=== PATIENT | female | born 1940 | race Two or more races ===

== ENCOUNTER 2021-03-24 21:42 | Emergency (ER) | payer OTHER ==
[~2021-03-24] VITALS: Ht 167.6 cm; Wt 43.1 kg
[2021-03-24 23:42] LABS: Basophils # (auto) 0.1 10 ^3/uL (0-0.2); Basophils % (auto) 0.7 % (0.0-2.0); Eosinophils # (auto) 0.1 10 ^3/uL (0-0.8); Eosinophils % (auto) 1.2 % (0.0-7.0); Hematocrit 34.7 % (36.0-46.0); Hemoglobin 11.6 g/dL (12.2-16.2); Lymphocytes # (auto) 1.7 10 ^3/uL (0.4-5.4); Lymphocytes % (auto) 15.2 % (10.0-50.0); Mean Corpuscular Hemoglobin 29.4 pg (28.0-32.0); Mean Corpuscular Hgb Conc. 33.5 g/dL (32.0-36.0); Mean Corpuscular Volume 87.9 fL (80.0-100.0); Monocytes # (auto) 1.1 10 ^3/uL (0-1.3); Neutrophils # (auto) 8.4 10 ^3/uL (1.6-8.6); Neutrophils % (auto) 72.9 % (37.0-80.0); Red Blood Cells 3.95 10^6/uL (4.0-5.20); Red Cell Distribution Width 13.3 % (11.8-14.3); White Blood Cell 11.5 10^3/uL (4.4-10.8)
[2021-03-25] LABS: Albumin 3.1 g/dL (3.4-5.0); Anion Gap 8 (5-15); Blood Urea Nitrogen 41 mg/dL (7-18); Calcium 8.8 mg/dL (8.5-10.1); Carbon Dioxide 28 mmol/L (21-32); Chloride 102 mmol/L (98-107); Glucose 333 mg/dL (74-106); Potassium 3.9 mmol/L (3.5-5.1); Sodium 138 mmol/L (136-145)
[2021-03-25 00:07] LABS: Alanine Aminotransferase 9 U/L (13-56); Alkaline Phosphatase 101 U/L (45-117); Aspartate Aminotransferase 13 U/L (15-37); Bilirubin, Total 0.6 mg/dL (0.2-1.0); GFR African American 39 mL/min; GFR Non-African American 32 mL/min; Total Protein 6.4 g/dL (6.4-8.2)
[2021-03-25 00:17] LABS: BUN/Creatinine Ratio 25.2
[2021-03-25 01:37] LABS: Urine Bacteria MOD /hpf (None Seen); Urine Blood Negative /uL (Negative); Urine Hyaline Cast MANY /lpf (0 - 2); Urine Mucus FEW (None Seen); Urine Specific Gravity 1.013 (1.001-1.035); Urine WBC 199 /hpf (0 - 5); Urine WBC Clumps PRESENT /hpf (None Seen)
[2021-03-25 03:25] VITALS: BP 152/57
== END 2021-03-25 03:32 | disposition home or self-care (01) ==
LOC: ER 21:42 → EDBD 21:42 → ER 03-25 03:30
DX: E11.65 Type 2 diabetes mellitus with hyperglycemia (principal); N39.0 Urinary tract infection, site not specified; I11.0 Hypertensive heart disease with heart failure; I50.9 Heart failure, unspecified; J44.9 Chronic obstructive pulmonary disease, unspecified
CPT/HCPCS: 36415; 51701; 80053; 81001; 82962; 83605; 83880; 84484; 85025; 93005

== ENCOUNTER 2021-04-27 17:48 | Inpatient (IN) | payer OTHER ==
[~2021-04-27] VITALS: Ht 160 cm; Wt 102.8 kg
[2021-04-27 19:19] LABS: Basophils # (auto) 0 10 ^3/uL (0-0.2); Basophils % (auto) 0.5 % (0.0-2.0); Eosinophils # (auto) 0.2 10 ^3/uL (0-0.8); Eosinophils % (auto) 1.6 % (0.0-7.0); Hematocrit 30.8 % (36.0-46.0); Hemoglobin 10.1 g/dL (12.2-16.2); Lymphocytes # (auto) 1.4 10 ^3/uL (0.4-5.4); Lymphocytes % (auto) 13.8 % (10.0-50.0); Mean Corpuscular Hemoglobin 29.4 pg (28.0-32.0); Mean Corpuscular Hgb Conc. 32.8 g/dL (32.0-36.0); Mean Corpuscular Volume 89.5 fL (80.0-100.0); Monocytes # (auto) 1.2 10 ^3/uL (0-1.3); Monocytes % (auto) 12.6 % (0.0-12.0); Neutrophils # (auto) 7.1 10 ^3/uL (1.6-8.6); Neutrophils % (auto) 71.5 % (37.0-80.0); Red Blood Cells 3.44 10^6/uL (4.0-5.20); Red Cell Distribution Width 13.6 % (11.8-14.3); White Blood Cell 9.9 10^3/uL (4.4-10.8)
[2021-04-27 19:32] LABS: Albumin 2.6 g/dL (3.4-5.0); Anion Gap 7 (5-15); Blood Urea Nitrogen 39 mg/dL (7-18); Calcium 8.5 mg/dL (8.5-10.1); Carbon Dioxide 24 mmol/L (21-32); Chloride 105 mmol/L (98-107); Glucose 282 mg/dL (74-106); Potassium 4.5 mmol/L (3.5-5.1); Sodium 136 mmol/L (136-145)
[2021-04-27 19:43] LABS: Alanine Aminotransferase 28 U/L (13-56); Alkaline Phosphatase 125 U/L (45-117); Aspartate Aminotransferase 62 U/L (15-37); BUN/Creatinine Ratio 17.9; Bilirubin, Total 0.8 mg/dL (0.2-1.0); GFR African American 28 mL/min; GFR Non-African American 23 mL/min; Total Protein 6.1 g/dL (6.4-8.2)
[2021-04-28] MEDS ORDERED: FUROSEMIDE 40 MG/4 ML VIAL IV ONE (02:00)
[2021-04-28] MEDS ORDERED: ONDANSETRON HCL 4 MG/2 ML VIAL IV PRN (07:45)
[2021-04-28] MEDS ORDERED: DEXTROSE (50%) 50ML SYRG IV PRN (07:45)
[2021-04-28] MEDS ORDERED: MORPHINE SULFATE INJECTION 2 MG/ML SYRG IV PRN (07:45)
[2021-04-28] MEDS ORDERED: NITROGLYCERIN 0.4 MG SL TAB SL PRN (07:45)
[2021-04-28 07:57] LABS: Urine Bacteria NONE SEEN /hpf (None Seen); Urine Blood TRACE /uL (Negative); Urine Hyaline Cast FEW /lpf (0 - 2); Urine Mucus FEW (None Seen); Urine Specific Gravity 1.009 (1.001-1.035); Urine WBC 1 /hpf (0 - 5)
[2021-04-28] MEDS: cefTRIAXone 1GM/50ML D5W 50 ML IV SCH (09:00)
[2021-04-28] MEDS: SERTRALINE HCL 50 MG TAB PO SCH (10:00)
[2021-04-28] MEDS: AMANTADINE HCL 100 MG CAP PO SCH (10:00)
[2021-04-28] MEDS: PANTOPRAZOLE 40 MG TAB PO SCH (10:00)
[2021-04-28] MEDS: LOSARTAN POTASSIUM 50 MG TAB PO SCH (10:00)
[2021-04-28] MEDS: InsuLIN REG 1unit/0.01ml Soln (100units/ml) SC SCH ×3 (11:30→21:17)
[2021-04-28] MEDS: ACCU-CHEK COMFORT CURVE STRIP VI SCH ×3 (11:32→21:17)
[2021-04-28] MEDS: HEPARIN SODIUM (PORCINE) 5000 UNITS/ML 1ML VIAL SC SCH ×2 (12:18→21:04)
[2021-04-28] MEDS ORDERED: INS7030I SC (13:43)
[2021-04-28] MEDS: ACETAMINOPHEN 325 MG TAB PO PRN (15:01)
[2021-04-28] MEDS: FUROSEMIDE 20 MG/2 ML VIAL IV SCH (18:27)
[2021-04-28 20:00] VITALS: BP 142/53
[2021-04-28] MEDS: ATORVASTATIN 20 MG TAB PO SCH (21:02)
[2021-04-28 22:00] VITALS: BP 142/53
[2021-04-29 05:00] VITALS: BP 134/56
[2021-04-29 05:31] LABS: Basophils # (auto) 0.1 10 ^3/uL (0-0.2); Basophils % (auto) 0.6 % (0.0-2.0); Eosinophils # (auto) 0.1 10 ^3/uL (0-0.8); Hematocrit 28.2 % (36.0-46.0); Hemoglobin 9.4 g/dL (12.2-16.2); Lymphocytes # (auto) 1.1 10 ^3/uL (0.4-5.4); Lymphocytes % (auto) 10.2 % (10.0-50.0); Mean Corpuscular Hemoglobin 29.6 pg (28.0-32.0); Mean Corpuscular Hgb Conc. 33.3 g/dL (32.0-36.0); Monocytes # (auto) 1.2 10 ^3/uL (0-1.3); Monocytes % (auto) 11.3 % (0.0-12.0); Neutrophils % (auto) 76.9 % (37.0-80.0); Red Blood Cells 3.17 10^6/uL (4.0-5.20); Red Cell Distribution Width 13.4 % (11.8-14.3); White Blood Cell 10.4 10^3/uL (4.4-10.8)
[2021-04-29 06:06] LABS: BUN/Creatinine Ratio 19.4; Calcium 8.6 mg/dL (8.5-10.1); Magnesium 2.7 mg/dL (1.6-2.6); Potassium 4.5 mmol/L (3.5-5.1)
[2021-04-29] MEDS: LEVOTHYROXINE SODIUM 112 MCG TAB PO SCH (06:27)
[2021-04-29] MEDS: FUROSEMIDE 20 MG/2 ML VIAL IV SCH ×2 (06:27→18:09)
[2021-04-29] MEDS: ACCU-CHEK COMFORT CURVE STRIP VI SCH ×4 (06:35→22:33)
[2021-04-29] MEDS: InsuLIN REG 1unit/0.01ml Soln (100units/ml) SC SCH ×4 (06:36→22:39)
[2021-04-29 08:29] VITALS: BP 150/55
[2021-04-29] MEDS: cefTRIAXone 1GM/50ML D5W 50 ML IV SCH (09:21)
[2021-04-29] MEDS: LOSARTAN POTASSIUM 50 MG TAB PO SCH (09:24)
[2021-04-29] MEDS: SERTRALINE HCL 50 MG TAB PO SCH (09:25)
[2021-04-29] MEDS: PANTOPRAZOLE 40 MG TAB PO SCH (09:25)
[2021-04-29] MEDS: HEPARIN SODIUM (PORCINE) 5000 UNITS/ML 1ML VIAL SC SCH ×2 (09:29→22:39)
[2021-04-29] MEDS ORDERED: SERT25TA84 PO (10:51)
[2021-04-29] MEDS ORDERED: ACET-1079 PO (10:51)
[2021-04-29] MEDS ORDERED: POTA-220 PO (10:51)
[2021-04-29] MEDS ORDERED: ROSU20TA14 PO (10:51)
[2021-04-29] MEDS ORDERED: FURO40TA4 PO (10:51)
[2021-04-29] MEDS ORDERED: POLYSOL2 EACHEYE (10:51)
[2021-04-29] MEDS ORDERED: INSDRIP SC (10:51)
[2021-04-29] MEDS ORDERED: GABA300C PO (10:51)
[2021-04-29] MEDS ORDERED: IBUP200C3 PO (10:51)
[2021-04-29] MEDS ORDERED: CHOL-17 PO (10:51)
[2021-04-29] MEDS ORDERED: ALBU0.084 NEB (10:51)
[2021-04-29] MEDS ORDERED: LOSA-69 PO (10:51)
[2021-04-29] MEDS ORDERED: DOCU-94 PO (10:51)
[2021-04-29] MEDS ORDERED: ASPI1TAB91 PO (10:51)
[2021-04-29] MEDS ORDERED: CEPH500C PO (10:51)
[2021-04-29] MEDS ORDERED: LEVO112T4 PO (10:51)
[2021-04-29] MEDS ORDERED: MELA5TAB8 PO (10:51)
[2021-04-29] MEDS ORDERED: POM PO ×3 (10:52→10:54)
[2021-04-29] MEDS ORDERED: INSU70IN3 SC (10:56)
[2021-04-29] MEDS: AMANTADINE HCL 100 MG CAP PO SCH (11:25)
[2021-04-29 13:23] VITALS: BP 144/55
[2021-04-29 16:57] VITALS: BP 148/59
[2021-04-29] MEDS ORDERED: DEXTROSE (50%) 50ML SYRG IV PRN (17:45)
[2021-04-29] MEDS ORDERED: INSULIN 70/30 1unit/0.01ml Susp (100units/ml) SC SCH (20:00)
[2021-04-29 22:00] VITALS: BP 125/49
[2021-04-29] MEDS ORDERED: InsuLIN REG 1unit/0.01ml Soln (100units/ml) SC SCH (22:00)
[2021-04-29] MEDS: ATORVASTATIN 20 MG TAB PO SCH (22:33)
[2021-04-30 05:00] VITALS: BP 132/56
[2021-04-30] MEDS: FUROSEMIDE 20 MG/2 ML VIAL IV SCH ×2 (06:13→16:43)
[2021-04-30] MEDS: LEVOTHYROXINE SODIUM 112 MCG TAB PO SCH (06:16)
[2021-04-30] MEDS: ACCU-CHEK COMFORT CURVE STRIP VI SCH ×4 (06:23→22:00)
[2021-04-30] MEDS: InsuLIN REG 1unit/0.01ml Soln (100units/ml) SC SCH ×4 (06:24→22:00)
[2021-04-30 06:29] LABS: BUN/Creatinine Ratio 22.7; Calcium 8.8 mg/dL (8.5-10.1)
[2021-04-30] MEDS ORDERED: INSULIN 70/30 1unit/0.01ml Susp (100units/ml) SC SCH (08:00)
[2021-04-30] MEDS: SERTRALINE HCL 50 MG TAB PO SCH (08:28)
[2021-04-30] MEDS: PANTOPRAZOLE 40 MG TAB PO SCH (08:29)
[2021-04-30] MEDS: LOSARTAN POTASSIUM 50 MG TAB PO SCH (08:53)
[2021-04-30 09:00] VITALS: BP 140/65
[2021-04-30] MEDS: cefTRIAXone 1GM/50ML D5W 50 ML IV SCH (09:21)
[2021-04-30] MEDS: AMANTADINE HCL 100 MG CAP PO SCH (09:22)
[2021-04-30] MEDS: HEPARIN SODIUM (PORCINE) 5000 UNITS/ML 1ML VIAL SC SCH ×2 (09:23→22:00)
[2021-04-30 13:00] VITALS: BP 152/71
[2021-04-30 16:42] VITALS: BP 133/69
[2021-04-30 20:00] VITALS: BP 143/65
[2021-04-30 22:00] VITALS: BP 143/65
[2021-04-30] MEDS: ATORVASTATIN 20 MG TAB PO SCH (22:00)
[2021-04-30] MEDS: INSULIN 70/30 1unit/0.01ml Susp (100units/ml) SC SCH (22:42)
[2021-04-30] MEDS ORDERED: ALBUTEROL SULF 2.5 MG/0.5ML(0.5%) NEB SOLN NEB PRN (23:45)
[2021-05-01 03:15] VITALS: BP 143/65
[2021-05-01 05:00] VITALS: BP 149/54
[2021-05-01] MEDS: FUROSEMIDE 20 MG/2 ML VIAL IV SCH ×2 (05:46→17:27)
[2021-05-01] MEDS: ACETAMINOPHEN 325 MG TAB PO PRN (05:47)
[2021-05-01] MEDS: ACCU-CHEK COMFORT CURVE STRIP VI SCH ×4 (06:44→22:00)
[2021-05-01] MEDS: LEVOTHYROXINE SODIUM 112 MCG TAB PO SCH (06:44)
[2021-05-01] MEDS: InsuLIN REG 1unit/0.01ml Soln (100units/ml) SC SCH ×4 (06:52→22:00)
[2021-05-01] MEDS: INSULIN 70/30 1unit/0.01ml Susp (100units/ml) SC SCH ×2 (08:17→20:00)
[2021-05-01 08:44] LABS: Basophils # (auto) 0.1 10 ^3/uL (0-0.2); Eosinophils # (auto) 0.4 10 ^3/uL (0-0.8); Eosinophils % (auto) 4.6 % (0.0-7.0); Hematocrit 29.9 % (36.0-46.0); Lymphocytes # (auto) 1.5 10 ^3/uL (0.4-5.4); Lymphocytes % (auto) 19.1 % (10.0-50.0); Mean Corpuscular Hemoglobin 29.6 pg (28.0-32.0); Mean Corpuscular Hgb Conc. 33.3 g/dL (32.0-36.0); Mean Corpuscular Volume 88.8 fL (80.0-100.0); Monocytes # (auto) 0.9 10 ^3/uL (0-1.3); Monocytes % (auto) 11.3 % (0.0-12.0); Red Blood Cells 3.37 10^6/uL (4.0-5.20); Red Cell Distribution Width 13.2 % (11.8-14.3); White Blood Cell 7.9 10^3/uL (4.4-10.8)
[2021-05-01 08:57] LABS: BUN/Creatinine Ratio 23.3; Calcium 9.2 mg/dL (8.5-10.1); Potassium 4.3 mmol/L (3.5-5.1)
[2021-05-01 09:00] VITALS: BP 130/48
[2021-05-01] MEDS: cefTRIAXone 1GM/50ML D5W 50 ML IV SCH (09:29)
[2021-05-01] MEDS: AMANTADINE HCL 100 MG CAP PO SCH ×2 (10:00→15:58)
[2021-05-01] MEDS: LOSARTAN POTASSIUM 50 MG TAB PO SCH (10:51)
[2021-05-01] MEDS: SERTRALINE HCL 50 MG TAB PO SCH (10:52)
[2021-05-01] MEDS: HEPARIN SODIUM (PORCINE) 5000 UNITS/ML 1ML VIAL SC SCH ×2 (10:52→22:59)
[2021-05-01] MEDS: PANTOPRAZOLE 40 MG TAB PO SCH (10:52)
[2021-05-01 13:00] VITALS: BP 155/67
[2021-05-01 17:00] VITALS: BP 152/75
[2021-05-01 22:00] VITALS: BP 165/76
[2021-05-01] MEDS: ATORVASTATIN 20 MG TAB PO SCH (22:59)
[2021-05-02 05:00] VITALS: BP 159/69
[2021-05-02] MEDS: FUROSEMIDE 20 MG/2 ML VIAL IV SCH ×2 (06:13→18:00)
[2021-05-02] MEDS: ACCU-CHEK COMFORT CURVE STRIP VI SCH ×3 (06:42→17:00)
[2021-05-02] MEDS: LEVOTHYROXINE SODIUM 112 MCG TAB PO SCH (06:42)
[2021-05-02] MEDS: InsuLIN REG 1unit/0.01ml Soln (100units/ml) SC SCH ×3 (06:49→17:00)
[2021-05-02 09:00] VITALS: BP 154/56
[2021-05-02] MEDS: cefTRIAXone 1GM/50ML D5W 50 ML IV SCH (09:24)
[2021-05-02] MEDS: LOSARTAN POTASSIUM 50 MG TAB PO SCH (09:28)
[2021-05-02] MEDS: SERTRALINE HCL 50 MG TAB PO SCH (09:29)
[2021-05-02] MEDS: HEPARIN SODIUM (PORCINE) 5000 UNITS/ML 1ML VIAL SC SCH (09:32)
[2021-05-02] MEDS: PANTOPRAZOLE 40 MG TAB PO SCH (09:34)
[2021-05-02] MEDS: INSULIN 70/30 1unit/0.01ml Susp (100units/ml) SC SCH (09:44)
[2021-05-02 13:00] VITALS: BP 171/69
[2021-05-02 15:17] VITALS: BP 164/65
[2021-05-02 17:00] VITALS: BP 168/71
== END 2021-05-02 18:10 | disposition home health service (06) | DRG 602 ==
LOC: ER 17:48 → EDBD 17:48 → TELE 04-28 07:33 → TELE-CENTR 04-28 19:08
PROVIDERS: ADMIT Nurse Practitioner; ATTEND Internal Medicine Geriatric Medicine
DX: L03.115 Cellulitis of right lower limb (principal); E43 Unspecified severe protein-calorie malnutrition; I50.33 Acute on chronic diastolic (congestive) heart failure; I13.0 Hypertensive heart and chronic kidney disease with heart failure and stage 1 through stage 4 chronic kidney disease, or unspecified chronic kidney disease; N17.9 Acute kidney failure, unspecified; Z68.41 Body mass index [BMI] 40.0-44.9, adult; L03.116 Cellulitis of left lower limb; Z20.822 Contact with and (suspected) exposure to COVID-19; J44.9 Chronic obstructive pulmonary disease, unspecified; E03.9 Hypothyroidism, unspecified; D64.9 Anemia, unspecified; E66.01 Morbid (severe) obesity due to excess calories; E11.40 Type 2 diabetes mellitus with diabetic neuropathy, unspecified; N18.9 Chronic kidney disease, unspecified; I70.0 Atherosclerosis of aorta; Z82.3 Family history of stroke; Z86.59 Personal history of other mental and behavioral disorders; Z85.3 Personal history of malignant neoplasm of breast; Z79.84 Long term (current) use of oral hypoglycemic drugs; Z86.69 Personal history of other diseases of the nervous system and sense organs
CPT/HCPCS: 36415; 71045; 80048; 80053; 81001; 82962; 83735; 83880; 84484; 85025; 85379; 87426; 93306; 93970; 94640; 96365; 96375; 97116; 97163; 97530; G0378; J0696; J1815

== ENCOUNTER 2021-05-08 11:36 | Inpatient (IN) | payer OTHER ==
[~2021-05-08] VITALS: Ht 165.1 cm; Wt 118.0 kg
[2021-05-08 00:45] VITALS: BP 119/50
[~2021-05-08 11:36] MED LIST: ACET-1079 PO; ALBU0.084 NEB; ASPI1TAB91 PO; CEPH500C PO; CHOL-17 PO; DOCU-94 PO; FURO40TA4 PO; GABA300C PO; IBUP200C3 PO; INSDRIP SC; INSU70IN3 SC; LEVO112T4 PO; LOSA-69 PO; MELA5TAB8 PO; POLYSOL2 EACHEYE; POM PO; POTA-220 PO; ROSU20TA14 PO; SERT25TA84 PO
[2021-05-08 12:21] LABS: Hematocrit 29.9 % (36.0-46.0); Hemoglobin 9.6 g/dL (12.2-16.2); Mean Corpuscular Hemoglobin 27.8 pg (28.0-32.0); Mean Corpuscular Hgb Conc. 32.1 g/dL (32.0-36.0); Mean Corpuscular Volume 86.4 fL (80.0-100.0); Red Blood Cells 3.46 10^6/uL (4.0-5.20); Red Cell Distribution Width 13.3 % (11.8-14.3); White Blood Cell 26.4 10^3/uL (4.4-10.8)
[2021-05-08 12:35] LABS: Basophils % (manual) 0 (0.0-2.0); Blast Cells 0; Metamyelocytes % 0; Myelocytes % 0; Promyelocytes % 0; Reactive Lymphocytes 0
[2021-05-08 12:37] LABS: Albumin 2.5 g/dL (3.4-5.0); Calcium 8.6 mg/dL (8.5-10.1); Potassium 4.4 mmol/L (3.5-5.1)
[2021-05-08 12:43] LABS: Bilirubin, Total 0.6 mg/dL (0.2-1.0); Total Protein 6.4 g/dL (6.4-8.2)
[2021-05-08 13:01] LABS: Band Neutrophils % (manual) 21; Eosinophils % (manual) 1 (0-7); Lymphocytes % (manual) 12 (10.0-50.0); Monocytes % (manual) 2 (0-12)
[2021-05-08] MEDS ORDERED: SODIUM CHLORIDE 0.9% 1,000 ML IV ONE (13:30)
[2021-05-08] MEDS ORDERED: AZITHROMYCIN 500MG/ 250ML 250 ML IV ONE (13:45)
[2021-05-08] MEDS ORDERED: cefTRIAXone 1GM/50ML D5W 50 ML IV ONE (13:45)
[2021-05-08] MEDS ORDERED: FUROSEMIDE 40 MG/4 ML VIAL IV ONE (13:45)
[2021-05-08 14:58] LABS: Lactic Acid w/Reflex 2.6 mmol/L (0.4-2.0)
[2021-05-08 16:53] LABS: Urine Bacteria FEW /hpf (None Seen); Urine Blood TRACE /uL (Negative); Urine Hyaline Cast FEW /lpf (0 - 2); Urine Specific Gravity 1.012 (1.001-1.035); Urine WBC 2 /hpf (0 - 5)
[2021-05-08] MEDS ORDERED: ONDANSETRON HCL 4 MG/2 ML VIAL IV PRN (21:45)
[2021-05-08] MEDS ORDERED: TEMAZEPAM 15 MG CAP PO PRN (21:45)
[2021-05-08] MEDS ORDERED: DEXTROSE (50%) 50ML SYRG IV PRN (21:45)
[2021-05-08] MEDS ORDERED: MORPHINE SULFATE INJECTION 2 MG/ML SYRG IV PRN (21:45)
[2021-05-08] MEDS ORDERED: NITROGLYCERIN 0.4 MG SL TAB SL PRN (21:45)
[2021-05-08] MEDS: GABAPENTIN 300 MG CAP PO SCH (22:00)
[2021-05-08] MEDS: ATORVASTATIN 20 MG TAB PO SCH (22:26)
[2021-05-09] MEDS: CARBIDOPA W LEVODOPA 25/250mg TABLET PO SCH ×4 (00:03→21:24)
[2021-05-09] MEDS: ACCU-CHEK COMFORT CURVE STRIP VI SCH ×4 (00:09→17:54)
[2021-05-09 00:16] VITALS: BP 119/50
[2021-05-09] MEDS: InsuLIN REG 1unit/0.01ml Soln (100units/ml) SC SCH ×4 (00:16→17:56)
[2021-05-09] MEDS: ACETAMINOPHEN 325 MG TAB PO PRN (00:26)
[2021-05-09] MEDS ORDERED: MELA3TAB14 PO (01:35)
[2021-05-09] MEDS ORDERED: CHOL20007 PO (01:35)
[2021-05-09] MEDS ORDERED: LEVO112C3 PO (01:35)
[2021-05-09] MEDS ORDERED: ASPI-543 PO (01:35)
[2021-05-09] MEDS ORDERED: INS7030I SC (01:35)
[2021-05-09 05:00] VITALS: BP 95/52
[2021-05-09] MEDS: GABAPENTIN 300 MG CAP PO SCH ×3 (05:30→21:24)
[2021-05-09] MEDS: FUROSEMIDE 40 MG TAB PO SCH ×2 (05:41→17:54)
[2021-05-09 06:05] LABS: Hemoglobin 9.1 g/dL (12.2-16.2)
[2021-05-09 06:09] LABS: Hematocrit 28.1 % (36.0-46.0); Mean Corpuscular Hemoglobin 28.3 pg (28.0-32.0); Mean Corpuscular Hgb Conc. 32.5 g/dL (32.0-36.0); Mean Corpuscular Volume 87.1 fL (80.0-100.0); Red Blood Cells 3.22 10^6/uL (4.0-5.20); Red Cell Distribution Width 13.4 % (11.8-14.3)
[2021-05-09 06:17] LABS: Basophils % (manual) 0 (0.0-2.0); Blast Cells 0; Eosinophils % (manual) 0 (0-7); Potassium 4.4 mmol/L (3.5-5.1); Promyelocytes % 0; Reactive Lymphocytes 0; White Blood Cell 35.4 10^3/uL (4.4-10.8)
[2021-05-09 06:23] LABS: Albumin 2.1 g/dL (3.4-5.0); BUN/Creatinine Ratio 17.4; Bilirubin, Total 0.7 mg/dL (0.2-1.0); Total Protein 5.5 g/dL (6.4-8.2)
[2021-05-09] MEDS: LEVOTHYROXINE SODIUM 112 MCG TAB PO SCH (06:25)
[2021-05-09] MEDS ORDERED: ALBUMIN 5% 250 ML IV ONE (06:45)
[2021-05-09 07:58] LABS: Band Neutrophils % (manual) 24; Lymphocytes % (manual) 4 (10.0-50.0); Metamyelocytes % 2; Monocytes % (manual) 3 (0-12); Myelocytes % 3
[2021-05-09 09:00] VITALS: BP 100/46
[2021-05-09] MEDS: cefTRIAXone 1GM/50ML D5W 50 ML IV SCH (09:53)
[2021-05-09] MEDS: POTASSIUM CHL 10 Meq TABLET PO SCH (09:54)
[2021-05-09] MEDS: PANTOPRAZOLE 40 MG TAB PO SCH (09:54)
[2021-05-09] MEDS: ASPirin 81 mg TAB PO SCH (09:54)
[2021-05-09] MEDS: AZITHROMYCIN 500MG/ 250ML 250 ML IV SCH (10:01)
[2021-05-09] MEDS ORDERED: INSULIN 70/30 1unit/0.01ml Susp (100units/ml) SC ONE (12:45)
[2021-05-09 14:00] VITALS: BP 80/49
[2021-05-09] MEDS: INSULIN 70/30 1unit/0.01ml Susp (100units/ml) SC SCH (17:55)
[2021-05-09] MEDS: ATORVASTATIN 20 MG TAB PO SCH (21:24)
[2021-05-10] VITALS (18 sets, daily range): BP systolic 79–131; BP diastolic 28–100
[2021-05-10] MEDS: ACCU-CHEK COMFORT CURVE STRIP VI SCH ×5 (00:31→23:47)
[2021-05-10] MEDS: InsuLIN REG 1unit/0.01ml Soln (100units/ml) SC SCH ×5 (00:33→23:51)
[2021-05-10 05:29] LABS: Hemoglobin 9.2 g/dL (12.2-16.2)
[2021-05-10 05:32] LABS: Hematocrit 27.9 % (36.0-46.0); Mean Corpuscular Hemoglobin 28.1 pg (28.0-32.0); Mean Corpuscular Volume 85.1 fL (80.0-100.0); Red Blood Cells 3.28 10^6/uL (4.0-5.20); Red Cell Distribution Width 13.6 % (11.8-14.3)
[2021-05-10 05:56] LABS: Potassium 4.7 mmol/L (3.5-5.1)
[2021-05-10] MEDS: FUROSEMIDE 40 MG TAB PO SCH (06:00)
[2021-05-10] MEDS: CARBIDOPA W LEVODOPA 25/250mg TABLET PO SCH ×3 (06:00→23:04)
[2021-05-10 06:02] LABS: White Blood Cell 34.5 10^3/uL (4.4-10.8)
[2021-05-10 06:03] LABS: BUN/Creatinine Ratio 13.2
[2021-05-10 06:04] LABS: Basophils % (manual) 0 (0.0-2.0); Blast Cells 0; Eosinophils % (manual) 0 (0-7); Myelocytes % 0; Promyelocytes % 0; Reactive Lymphocytes 0
[2021-05-10] MEDS: GABAPENTIN 300 MG CAP PO SCH ×3 (06:14→23:04)
[2021-05-10] MEDS: LEVOTHYROXINE SODIUM 112 MCG TAB PO SCH (06:23)
[2021-05-10 07:55] LABS: Band Neutrophils % (manual) 21; Lymphocytes % (manual) 6 (10.0-50.0); Metamyelocytes % 1; Monocytes % (manual) 5 (0-12)
[2021-05-10] MEDS: INSULIN 70/30 1unit/0.01ml Susp (100units/ml) SC SCH ×2 (08:00→17:54)
[2021-05-10] MEDS: SERTRALINE HCL 50 MG TAB PO SCH (08:55)
[2021-05-10] MEDS: PANTOPRAZOLE 40 MG TAB PO SCH (08:55)
[2021-05-10] MEDS: cefTRIAXone 1GM/50ML D5W 50 ML IV SCH (08:55)
[2021-05-10] MEDS: ASPirin 81 mg TAB PO SCH (08:55)
[2021-05-10] MEDS: POTASSIUM CHL 10 Meq TABLET PO SCH (08:55)
[2021-05-10] MEDS: AZITHROMYCIN 500MG/ 250ML 250 ML IV SCH (08:55)
[2021-05-10] MEDS ORDERED: ASPirin-EC 81 mg tab PO SCH (10:00)
[2021-05-10] MEDS: ACETAMINOPHEN 325 MG TAB PO PRN ×2 (10:05→17:50)
[2021-05-10] MEDS ORDERED: SODIUM CHLORIDE 0.9% 500 ML IV ONE (12:15)
[2021-05-10] MEDS: SODIUM CHLORIDE 0.9% 1,000 ML IV SCH ×2 (12:15→20:15)
[2021-05-10] MEDS ORDERED: PHENYLEPHRINE IV 250 ML IV ONE (19:42)
[2021-05-10] MEDS ORDERED: AMIODARONE 450mg/250ml AE 250 ML IV ONE (19:43)
[2021-05-10] MEDS ORDERED: AMIODARONE HCL (50 MG/ ML) 3 ML VIAL IV ONE (19:43)
[2021-05-10] MEDS ORDERED: AMIODARONE HCL 150 MG in D5W 5% 100 ML IV ONE (19:45)
[2021-05-10] MEDS ORDERED: AMIODARONE 450mg/250ml AE 250 ML IV SCH (20:00)
[2021-05-10] MEDS: PHENYLEPHRINE IV 250 ML IV SCH (20:42)
[2021-05-10] MEDS ORDERED: CLINIMIX PER PHARMACY 0 ML IV SCH (21:00)
[2021-05-10] MEDS ORDERED: AMINO ACID INFUSION IN D10W 1,000 ML IV NR (21:30)
[2021-05-10] MEDS: VANCOMYCIN HCL 125MG/5ML ORAL SOL GT SCH (22:00)
[2021-05-10] MEDS: ATORVASTATIN 20 MG TAB PO SCH (23:04)
[2021-05-10] MEDS: metroNIDAZOLE 500MG/100ML 100 ML IV SCH (23:04)
[2021-05-11] VITALS (89 sets, daily range): BP systolic 97–134; BP diastolic 26–65
[2021-05-11] MEDS ORDERED: DEXTROSE (50%) 50ML SYRG IV SCH
[2021-05-11] MEDS: PHENYLEPHRINE IV 250 ML IV SCH ×4 (00:15→20:35)
[2021-05-11] MEDS: AMIODARONE 450mg/250ml AE 250 ML IV SCH ×2 (02:09→08:55)
[2021-05-11] MEDS: SODIUM CHLORIDE 0.9% 1,000 ML IV SCH ×4 (04:15→23:07)
[2021-05-11 05:33] LABS: Hematocrit 30.3 % (36.0-46.0); Hemoglobin 10.1 g/dL (12.2-16.2); Mean Corpuscular Hemoglobin 28.6 pg (28.0-32.0); Mean Corpuscular Hgb Conc. 33.2 g/dL (32.0-36.0); Red Blood Cells 3.53 10^6/uL (4.0-5.20); Red Cell Distribution Width 13.6 % (11.8-14.3)
[2021-05-11 05:34] LABS: Magnesium 1.9 mg/dL (1.6-2.6)
[2021-05-11 05:39] LABS: Phosphorus 4.7 mg/dL (2.5-4.90); Pre Albumin 4.2 mg/dL (20.0-40.0)
[2021-05-11 05:42] LABS: White Blood Cell 48.5 10^3/uL (4.4-10.8)
[2021-05-11 05:43] LABS: Basophils % (manual) 0 (0.0-2.0); Blast Cells 0; Eosinophils % (manual) 0 (0-7); Metamyelocytes % 0; Myelocytes % 0; Promyelocytes % 0; Reactive Lymphocytes 0
[2021-05-11] MEDS: VANCOMYCIN HCL 125MG/5ML ORAL SOL GT SCH ×4 (05:51→21:46)
[2021-05-11] MEDS: metroNIDAZOLE 500MG/100ML 100 ML IV SCH ×3 (05:51→21:53)
[2021-05-11] MEDS: ACCU-CHEK COMFORT CURVE STRIP VI SCH ×3 (06:00→17:54)
[2021-05-11] MEDS: CARBIDOPA W LEVODOPA 25/250mg TABLET PO SCH ×3 (06:00→21:46)
[2021-05-11] MEDS: GABAPENTIN 300 MG CAP PO SCH ×3 (06:00→21:46)
[2021-05-11 06:12] LABS: BUN/Creatinine Ratio 13.1; Calcium 7.8 mg/dL (8.5-10.1); Potassium 5.2 mmol/L (3.5-5.1)
[2021-05-11] MEDS: InsuLIN REG 1unit/0.01ml Soln (100units/ml) SC SCH ×4 (06:41→23:46)
[2021-05-11] MEDS: LEVOTHYROXINE SODIUM 112 MCG TAB PO SCH (07:00)
[2021-05-11 08:14] LABS: INR 1.17 (0.9-1.15); Partial Thromboplastin Time 32.8 sec (23.6-33.0)
[2021-05-11] MEDS: cefTRIAXone 1GM/50ML D5W 50 ML IV SCH (08:55)
[2021-05-11 09:10] LABS: Band Neutrophils % (manual) 35; Lymphocytes % (manual) 3 (10.0-50.0); Monocytes % (manual) 3 (0-12)
[2021-05-11 09:39] LABS: Albumin 1.8 g/dL (3.4-5.0); Calcium 7.8 mg/dL (8.5-10.1); Potassium 5.3 mmol/L (3.5-5.1)
[2021-05-11 09:43] LABS: BUN/Creatinine Ratio 13.7; Bilirubin, Total 0.3 mg/dL (0.2-1.0); Total Protein 5.5 g/dL (6.4-8.2)
[2021-05-11] MEDS: AZITHROMYCIN 500MG/ 250ML 250 ML IV SCH (09:55)
[2021-05-11] MEDS: ASPirin 81 mg TAB PO SCH (09:55)
[2021-05-11] MEDS: PANTOPRAZOLE 40 MG TAB PO SCH (09:56)
[2021-05-11] MEDS: POTASSIUM CHL 10 Meq TABLET PO SCH ×2 (09:56→10:00)
[2021-05-11] MEDS: SERTRALINE HCL 50 MG TAB PO SCH (09:56)
[2021-05-11] MEDS: INSULIN 70/30 1unit/0.01ml Susp (100units/ml) SC SCH ×2 (10:43→17:55)
[2021-05-11] MEDS: ALBUMIN 25% 100 ML IV SCH ×2 (13:58→20:29)
[2021-05-11] MEDS ORDERED: LIDOCAINE 1% (LOCAL ANESTH.) PF 5ml SDV ID ONE (14:15)
[2021-05-11] MEDS: AMIODARONE HCL 200 MG TAB PO SCH (17:53)
[2021-05-11] MEDS: BUMETANIDE 2.5mg/10ml (0.25 mg/ml) INJ IV SCH (17:54)
[2021-05-11] MEDS ORDERED: AMINO ACID INFUSION IN D10W 1,000 ML IV NR (20:00)
[2021-05-11] MEDS: ATORVASTATIN 20 MG TAB PO SCH (21:46)
[2021-05-11] MEDS: SODIUM CHLOR 0.9% PF (SALINE LOCK) 10ML VIAL/SYR IV SCH (21:53)
[2021-05-11] MEDS: ACETAMINOPHEN 325 MG TAB PO PRN (23:06)
[2021-05-12] VITALS (95 sets, daily range): BP systolic 83–134; BP diastolic 29–53
[2021-05-12] MEDS: PHENYLEPHRINE IV 250 ML IV SCH ×3 (00:33→05:31)
[2021-05-12] MEDS: ACCU-CHEK COMFORT CURVE STRIP VI SCH ×5 (01:33→23:37)
[2021-05-12 03:32] LABS: Hemoglobin 8.3 g/dL (12.2-16.2)
[2021-05-12 03:34] LABS: Hematocrit 25.3 % (36.0-46.0); Mean Corpuscular Hemoglobin 28.2 pg (28.0-32.0); Mean Corpuscular Hgb Conc. 32.8 g/dL (32.0-36.0); Red Blood Cells 2.94 10^6/uL (4.0-5.20); Red Cell Distribution Width 14.3 % (11.8-14.3)
[2021-05-12] MEDS: ALBUMIN 25% 100 ML IV SCH (03:48)
[2021-05-12 03:49] LABS: Albumin 2.9 g/dL (3.4-5.0); Anion Gap 11 (5-15); Blood Urea Nitrogen 67 mg/dL (7-18); Calcium 7.2 mg/dL (8.5-10.1); Carbon Dioxide 17 mmol/L (21-32); Chloride 100 mmol/L (98-107); Glucose 204 mg/dL (74-106); Magnesium 1.9 mg/dL (1.6-2.6); Potassium 4.6 mmol/L (3.5-5.1); Sodium 128 mmol/L (136-145); White Blood Cell 31.5 10^3/uL (4.4-10.8)
[2021-05-12 03:50] LABS: Basophils % (manual) 0 (0.0-2.0); Blast Cells 0; Metamyelocytes % 0; Myelocytes % 0; Promyelocytes % 0; Reactive Lymphocytes 0
[2021-05-12 03:51] LABS: Alanine Aminotransferase < 6 U/L (13-56); Aspartate Aminotransferase 13 U/L (15-37); BUN/Creatinine Ratio 13.1; GFR African American 10 mL/min; GFR Non-African American 9 mL/min
[2021-05-12 03:57] LABS: Alkaline Phosphatase 164 U/L (45-117); Bilirubin, Total 0.7 mg/dL (0.2-1.0); Total Protein 5.9 g/dL (6.4-8.2)
[2021-05-12] MEDS: BUMETANIDE 2.5mg/10ml (0.25 mg/ml) INJ IV SCH ×2 (05:55→17:59)
[2021-05-12] MEDS: GABAPENTIN 300 MG CAP PO SCH ×3 (05:55→21:53)
[2021-05-12] MEDS: CARBIDOPA W LEVODOPA 25/250mg TABLET PO SCH ×3 (05:55→21:53)
[2021-05-12] MEDS: InsuLIN REG 1unit/0.01ml Soln (100units/ml) SC SCH ×4 (06:00→23:31)
[2021-05-12] MEDS: LEVOTHYROXINE SODIUM 112 MCG TAB PO SCH (06:02)
[2021-05-12] MEDS: metroNIDAZOLE 500MG/100ML 100 ML IV SCH ×3 (06:04→21:53)
[2021-05-12] MEDS: VANCOMYCIN HCL 125MG/5ML ORAL SOL GT SCH ×4 (06:11→21:53)
[2021-05-12 06:43] LABS: Band Neutrophils % (manual) 52; Eosinophils % (manual) 1 (0-7); Lymphocytes % (manual) 9 (10.0-50.0); Monocytes % (manual) 8 (0-12)
[2021-05-12] MEDS: SODIUM CHLORIDE 0.9% 1,000 ML IV SCH ×2 (07:42→11:00)
[2021-05-12] MEDS: INSULIN 70/30 1unit/0.01ml Susp (100units/ml) SC SCH ×2 (07:43→17:59)
[2021-05-12] MEDS ORDERED: CALCIUM GLUC 1,000mg/50ml-NS 50 ML IV ONE (08:30)
[2021-05-12] MEDS: ASPirin 81 mg TAB PO SCH (09:19)
[2021-05-12] MEDS: AZITHROMYCIN 500MG/ 250ML 250 ML IV SCH (09:19)
[2021-05-12] MEDS: cefTRIAXone 1GM/50ML D5W 50 ML IV SCH (09:19)
[2021-05-12] MEDS: SODIUM CHLOR 0.9% PF (SALINE LOCK) 10ML VIAL/SYR IV SCH ×2 (09:19→21:53)
[2021-05-12] MEDS: SERTRALINE HCL 50 MG TAB PO SCH (09:20)
[2021-05-12] MEDS: PANTOPRAZOLE 40 MG TAB PO SCH (09:20)
[2021-05-12] MEDS: AMIODARONE HCL 200 MG TAB PO SCH (09:20)
[2021-05-12] MEDS: ALBUTEROL SULF 2.5 MG/0.5ML(0.5%) NEB SOLN NEB PRN ×2 (10:32→15:52)
[2021-05-12] MEDS: IPRATROPIUM BROM 0.5 MG/2.5ML INH SOL NEB PRN ×2 (10:32→15:52)
[2021-05-12] MEDS: ALBUTEROL SULF 2.5 MG/0.5ML(0.5%) NEB SOLN NEB SCH (19:08)
[2021-05-12] MEDS: IPRATROPIUM BROM 0.5 MG/2.5ML INH SOL NEB SCH (19:08)
[2021-05-12] MEDS ORDERED: AMINO ACID INFUSION IN D10W 1,000 ML IV NR (20:00)
[2021-05-12] MEDS: ATORVASTATIN 20 MG TAB PO SCH (21:53)
[2021-05-13] VITALS (36 sets, daily range): BP systolic 103–150; BP diastolic 36–72
[2021-05-13] MEDS: IPRATROPIUM BROM 0.5 MG/2.5ML INH SOL NEB SCH ×4 (00:13→19:23)
[2021-05-13] MEDS: ALBUTEROL SULF 2.5 MG/0.5ML(0.5%) NEB SOLN NEB SCH ×4 (00:13→19:21)
[2021-05-13 04:46] LABS: Hemoglobin 7.9 g/dL (12.2-16.2)
[2021-05-13 04:48] LABS: Hematocrit 24.6 % (36.0-46.0); Mean Corpuscular Hemoglobin 27.7 pg (28.0-32.0); Mean Corpuscular Hgb Conc. 32.1 g/dL (32.0-36.0); Mean Corpuscular Volume 86.4 fL (80.0-100.0); Red Blood Cells 2.84 10^6/uL (4.0-5.20); Red Cell Distribution Width 14.3 % (11.8-14.3); White Blood Cell 18.8 10^3/uL (4.4-10.8)
[2021-05-13 04:53] LABS: Basophils % (manual) 0 (0.0-2.0); Blast Cells 0; Metamyelocytes % 0; Myelocytes % 0; Promyelocytes % 0; Reactive Lymphocytes 0
[2021-05-13] MEDS: PHENYLEPHRINE IV 250 ML IV SCH (05:01)
[2021-05-13 05:03] LABS: Albumin 2.9 g/dL (3.4-5.0); Calcium 7.7 mg/dL (8.5-10.1); Magnesium 1.8 mg/dL (1.6-2.6); Potassium 4.5 mmol/L (3.5-5.1)
[2021-05-13 05:05] LABS: BUN/Creatinine Ratio 12.5
[2021-05-13 05:07] LABS: Bilirubin, Total 0.6 mg/dL (0.2-1.0); Phosphorus 4.9 mg/dL (2.5-4.90); Total Protein 5.7 g/dL (6.4-8.2)
[2021-05-13] MEDS: LEVOTHYROXINE SODIUM 112 MCG TAB PO SCH (05:19)
[2021-05-13] MEDS: GABAPENTIN 300 MG CAP PO SCH ×3 (05:19→22:00)
[2021-05-13] MEDS: CARBIDOPA W LEVODOPA 25/250mg TABLET PO SCH ×3 (05:19→22:00)
[2021-05-13] MEDS: BUMETANIDE 2.5mg/10ml (0.25 mg/ml) INJ IV SCH (05:20)
[2021-05-13] MEDS: metroNIDAZOLE 500MG/100ML 100 ML IV SCH ×3 (05:20→22:33)
[2021-05-13] MEDS: VANCOMYCIN HCL 125MG/5ML ORAL SOL GT SCH ×4 (05:20→22:00)
[2021-05-13] MEDS: InsuLIN REG 1unit/0.01ml Soln (100units/ml) SC SCH ×2 (06:28→12:49)
[2021-05-13] MEDS: ACCU-CHEK COMFORT CURVE STRIP VI SCH ×3 (06:28→18:00)
[2021-05-13] MEDS: SODIUM CHLORIDE 0.9% 1,000 ML IV SCH (06:29)
[2021-05-13 06:59] LABS: Band Neutrophils % (manual) 39; Eosinophils % (manual) 1 (0-7); Lymphocytes % (manual) 5 (10.0-50.0); Monocytes % (manual) 8 (0-12)
[2021-05-13] MEDS: INSULIN 70/30 1unit/0.01ml Susp (100units/ml) SC SCH (08:20)
[2021-05-13] MEDS: cefTRIAXone 1GM/50ML D5W 50 ML IV SCH (09:08)
[2021-05-13] MEDS: SODIUM CHLOR 0.9% PF (SALINE LOCK) 10ML VIAL/SYR IV SCH ×2 (11:04→22:37)
[2021-05-13] MEDS: AZITHROMYCIN 500MG/ 250ML 250 ML IV SCH (11:04)
[2021-05-13] MEDS: ASPirin 81 mg TAB PO SCH (11:04)
[2021-05-13] MEDS: AMIODARONE HCL 200 MG TAB PO SCH (11:05)
[2021-05-13] MEDS: SERTRALINE HCL 50 MG TAB PO SCH (11:06)
[2021-05-13] MEDS: PANTOPRAZOLE 40 MG TAB PO SCH (11:06)
[2021-05-13] MEDS ORDERED: BUMETANIDE 2.5mg/10ml (0.25 mg/ml) INJ IV SCH (16:30)
[2021-05-13] MEDS ORDERED: AMINO ACID INFUSION IN D10W 1,000 ML IV NR (20:00)
[2021-05-13] MEDS: ATORVASTATIN 20 MG TAB PO SCH (22:00)
[2021-05-14] MEDS: ACCU-CHEK COMFORT CURVE STRIP VI SCH ×4 (00:28→17:13)
[2021-05-14] MEDS: BUMETANIDE 2.5mg/10ml (0.25 mg/ml) INJ IV SCH ×3 (00:30→18:15)
[2021-05-14] MEDS: InsuLIN REG 1unit/0.01ml Soln (100units/ml) SC SCH ×5 (00:30→17:40)
[2021-05-14] MEDS: IPRATROPIUM BROM 0.5 MG/2.5ML INH SOL NEB SCH ×4 (00:45→18:40)
[2021-05-14] MEDS: ALBUTEROL SULF 2.5 MG/0.5ML(0.5%) NEB SOLN NEB SCH ×4 (00:45→18:40)
[2021-05-14] MEDS: SODIUM CHLORIDE 0.9% 1,000 ML IV SCH ×4 (03:00→14:51)
[2021-05-14 05:00] VITALS: BP 114/65
[2021-05-14 05:36] LABS: Hemoglobin 7.1 g/dL (12.2-16.2); Mean Corpuscular Volume 90.8 fL (80.0-100.0)
[2021-05-14 05:39] LABS: Hematocrit 22.4 % (36.0-46.0); Mean Corpuscular Hemoglobin 28.7 pg (28.0-32.0); Mean Corpuscular Hgb Conc. 31.6 g/dL (32.0-36.0); Red Blood Cells 2.47 10^6/uL (4.0-5.20); White Blood Cell 15.8 10^3/uL (4.4-10.8)
[2021-05-14 05:52] LABS: Basophils % (manual) 0 (0.0-2.0); Blast Cells 0; Metamyelocytes % 0; Promyelocytes % 0; Reactive Lymphocytes 0
[2021-05-14 05:59] LABS: Albumin 2.6 g/dL (3.4-5.0); Anion Gap 10 (5-15); Calcium 7.5 mg/dL (8.5-10.1); Carbon Dioxide 16 mmol/L (21-32); Chloride 98 mmol/L (98-107); Glucose 245 mg/dL (74-106); Magnesium 2.1 mg/dL (1.6-2.6); Potassium 5.1 mmol/L (3.5-5.1); Sodium 124 mmol/L (136-145)
[2021-05-14] MEDS: GABAPENTIN 300 MG CAP PO SCH ×3 (06:00→21:49)
[2021-05-14] MEDS: CARBIDOPA W LEVODOPA 25/250mg TABLET PO SCH ×3 (06:00→21:49)
[2021-05-14] MEDS: VANCOMYCIN HCL 125MG/5ML ORAL SOL GT SCH ×4 (06:00→21:48)
[2021-05-14 06:02] LABS: Alanine Aminotransferase < 6 U/L (13-56); Alkaline Phosphatase 178 U/L (45-117); Aspartate Aminotransferase 23 U/L (15-37); BUN/Creatinine Ratio 13.6; Bilirubin, Total 0.5 mg/dL (0.2-1.0); GFR African American 8 mL/min; GFR Non-African American 6 mL/min; Phosphorus 5.4 mg/dL (2.5-4.90); Total Protein 5.5 g/dL (6.4-8.2)
[2021-05-14] MEDS: metroNIDAZOLE 500MG/100ML 100 ML IV SCH ×3 (06:03→21:49)
[2021-05-14] MEDS: LEVOTHYROXINE SODIUM 112 MCG TAB PO SCH (06:03)
[2021-05-14 06:34] LABS: Blood Urea Nitrogen 89 mg/dL (7-18)
[2021-05-14] MEDS: cefTRIAXone 1GM/50ML D5W 50 ML IV SCH (08:59)
[2021-05-14 09:00] VITALS: BP 142/55
[2021-05-14] MEDS: FLORASTOR (S. BOULARDII) 250 MG CAP PO SCH ×2 (09:13→09:34)
[2021-05-14] MEDS: SODIUM CHLOR 0.9% PF (SALINE LOCK) 10ML VIAL/SYR IV SCH ×2 (09:13→21:50)
[2021-05-14] MEDS: AZITHROMYCIN 500MG/ 250ML 250 ML IV SCH (09:14)
[2021-05-14] MEDS: ASPirin 81 mg TAB PO SCH ×2 (09:14→09:34)
[2021-05-14] MEDS: PANTOPRAZOLE 40 MG TAB PO SCH ×2 (09:14→09:34)
[2021-05-14] MEDS: AMIODARONE HCL 200 MG TAB PO SCH ×2 (09:14→09:34)
[2021-05-14] MEDS: SERTRALINE HCL 50 MG TAB PO SCH ×2 (09:15→09:34)
[2021-05-14 10:21] LABS: Band Neutrophils % (manual) 23; Eosinophils % (manual) 3 (0-7); Lymphocytes % (manual) 4 (10.0-50.0); Monocytes % (manual) 8 (0-12); Myelocytes % 1
[2021-05-14] MEDS ORDERED: SODIUM BICARBONATE 8.4 % INJ 50ML VIAL IV ONE (11:15)
[2021-05-14] MEDS: INSULIN 70/30 1unit/0.01ml Susp (100units/ml) SC SCH ×2 (11:50→17:52)
[2021-05-14 13:00] VITALS: BP 120/50
[2021-05-14 17:00] VITALS: BP 119/45
[2021-05-14] MEDS ORDERED: AMINO ACID INFUSION IN D10W 1,000 ML IV NR (20:00)
[2021-05-14] MEDS: ATORVASTATIN 20 MG TAB PO SCH (21:48)
[2021-05-14 22:00] VITALS: BP 107/52
[2021-05-15] MEDS: ACCU-CHEK COMFORT CURVE STRIP VI SCH ×5 (00:05→23:52)
[2021-05-15] MEDS: IPRATROPIUM BROM 0.5 MG/2.5ML INH SOL NEB SCH ×5 (00:19→23:40)
[2021-05-15] MEDS: ALBUTEROL SULF 2.5 MG/0.5ML(0.5%) NEB SOLN NEB SCH ×5 (00:19→23:39)
[2021-05-15] MEDS: InsuLIN REG 1unit/0.01ml Soln (100units/ml) SC SCH ×5 (00:21→23:51)
[2021-05-15] MEDS: BUMETANIDE 2.5mg/10ml (0.25 mg/ml) INJ IV SCH ×3 (00:23→17:16)
[2021-05-15 04:06] VITALS: BP 107/52
[2021-05-15] MEDS: VANCOMYCIN HCL 125MG/5ML ORAL SOL GT SCH ×4 (05:37→22:00)
[2021-05-15] MEDS: CARBIDOPA W LEVODOPA 25/250mg TABLET PO SCH ×3 (05:37→22:00)
[2021-05-15] MEDS: GABAPENTIN 300 MG CAP PO SCH ×3 (05:37→22:00)
[2021-05-15] MEDS: metroNIDAZOLE 500MG/100ML 100 ML IV SCH ×3 (05:51→23:31)
[2021-05-15] MEDS: LEVOTHYROXINE SODIUM 112 MCG TAB PO SCH (05:58)
[2021-05-15 06:04] VITALS: BP 105/57
[2021-05-15] MEDS: cefTRIAXone 1GM/50ML D5W 50 ML IV SCH (08:38)
[2021-05-15] MEDS: AZITHROMYCIN 500MG/ 250ML 250 ML IV SCH (08:38)
[2021-05-15] MEDS: SODIUM CHLOR 0.9% PF (SALINE LOCK) 10ML VIAL/SYR IV SCH ×2 (08:39→23:54)
[2021-05-15] MEDS: AMIODARONE HCL 200 MG TAB PO SCH (08:39)
[2021-05-15] MEDS: ASPirin 81 mg TAB PO SCH (08:39)
[2021-05-15] MEDS: SERTRALINE HCL 50 MG TAB PO SCH (08:40)
[2021-05-15] MEDS: PANTOPRAZOLE 40 MG TAB PO SCH (08:40)
[2021-05-15] MEDS: FLORASTOR (S. BOULARDII) 250 MG CAP PO SCH (08:40)
[2021-05-15 09:00] VITALS: BP 121/49
[2021-05-15] MEDS: INSULIN 70/30 1unit/0.01ml Susp (100units/ml) SC SCH ×2 (09:09→18:03)
[2021-05-15 12:22] LABS: Albumin 2.7 g/dL (3.4-5.0); Anion Gap 12 (5-15); Carbon Dioxide 14 mmol/L (21-32); Chloride 96 mmol/L (98-107); Glucose 298 mg/dL (74-106); Magnesium 1.9 mg/dL (1.6-2.6); Sodium 122 mmol/L (136-145)
[2021-05-15 12:32] LABS: Alanine Aminotransferase < 6 U/L (13-56); Alkaline Phosphatase 188 U/L (45-117); Aspartate Aminotransferase 7 U/L (15-37); Bilirubin, Total 0.4 mg/dL (0.2-1.0); GFR African American 7 mL/min; GFR Non-African American 6 mL/min; Total Protein 5.8 g/dL (6.4-8.2)
[2021-05-15 12:49] LABS: Blood Urea Nitrogen 105 mg/dL (7-18)
[2021-05-15 13:00] VITALS: BP 124/50
[2021-05-15] MEDS: SODIUM CHLORIDE 0.9% 1,000 ML IV SCH (13:58)
[2021-05-15] MEDS: NOREPINEPHRINE 8 MG/250ML KIT 250 ML IV SCH ×3 (17:00→17:16)
[2021-05-15] MEDS: MORPHINE SULFATE INJECTION 2 MG/ML SYRG IV PRN (17:17)
[2021-05-15 18:36] VITALS: BP 119/50
[2021-05-15] MEDS ORDERED: SODIUM BICARBONATE 8.4 % INJ 50ML VIAL IV ONE ×2 (19:30→23:30)
[2021-05-15] MEDS ORDERED: AMINO ACID INFUSION IN D10W 1,000 ML IV NR (20:00)
[2021-05-15 22:00] VITALS: BP 121/48
[2021-05-15] MEDS: ATORVASTATIN 20 MG TAB PO SCH (22:00)
[2021-05-16] MEDS: BUMETANIDE 2.5mg/10ml (0.25 mg/ml) INJ IV SCH ×3 (01:35→18:00)
[2021-05-16 05:00] VITALS: BP 143/66
[2021-05-16] MEDS: VANCOMYCIN HCL 125MG/5ML ORAL SOL GT SCH ×4 (05:20→21:59)
[2021-05-16] MEDS: metroNIDAZOLE 500MG/100ML 100 ML IV SCH ×3 (05:20→22:00)
[2021-05-16] MEDS: GABAPENTIN 300 MG CAP PO SCH ×3 (05:20→21:59)
[2021-05-16] MEDS: CARBIDOPA W LEVODOPA 25/250mg TABLET PO SCH ×3 (05:21→21:59)
[2021-05-16] MEDS: ACCU-CHEK COMFORT CURVE STRIP VI SCH ×3 (05:21→18:00)
[2021-05-16] MEDS: InsuLIN REG 1unit/0.01ml Soln (100units/ml) SC SCH ×3 (05:22→18:09)
[2021-05-16] MEDS: ALBUTEROL SULF 2.5 MG/0.5ML(0.5%) NEB SOLN NEB SCH ×3 (05:38→18:53)
[2021-05-16] MEDS: IPRATROPIUM BROM 0.5 MG/2.5ML INH SOL NEB SCH ×3 (05:38→18:53)
[2021-05-16] MEDS: LEVOTHYROXINE SODIUM 112 MCG TAB PO SCH (06:36)
[2021-05-16 07:07] LABS: Hematocrit 25.2 % (36.0-46.0); Hemoglobin 7.9 g/dL (12.2-16.2); Mean Corpuscular Hemoglobin 27.3 pg (28.0-32.0); Mean Corpuscular Hgb Conc. 31.5 g/dL (32.0-36.0); Mean Corpuscular Volume 86.7 fL (80.0-100.0); Red Cell Distribution Width 14.4 % (11.8-14.3); White Blood Cell 14.3 10^3/uL (4.4-10.8)
[2021-05-16 07:10] LABS: Basophils % (manual) 0 (0.0-2.0); Blast Cells 0; Chloride 97 mmol/L (98-107); Potassium 4.9 mmol/L (3.5-5.1); Promyelocytes % 0; Reactive Lymphocytes 0; Sodium 125 mmol/L (136-145)
[2021-05-16 07:17] LABS: Alanine Aminotransferase < 6 U/L (13-56); Albumin 2.5 g/dL (3.4-5.0); Alkaline Phosphatase 162 U/L (45-117); Anion Gap 11 (5-15); Aspartate Aminotransferase 8 U/L (15-37); BUN/Creatinine Ratio 14.8; Bilirubin, Total 0.4 mg/dL (0.2-1.0); Calcium 7.9 mg/dL (8.5-10.1); Carbon Dioxide 17 mmol/L (21-32); GFR African American 7 mL/min; GFR Non-African American 6 mL/min; Glucose 241 mg/dL (74-106); Magnesium 2.1 mg/dL (1.6-2.6); Phosphorus 6.8 mg/dL (2.5-4.90); Total Protein 5.5 g/dL (6.4-8.2)
[2021-05-16 07:34] LABS: Blood Urea Nitrogen 107 mg/dL (7-18)
[2021-05-16 08:00] VITALS: BP 147/76
[2021-05-16] MEDS: cefTRIAXone 1GM/50ML D5W 50 ML IV SCH (08:21)
[2021-05-16] MEDS: INSULIN 70/30 1unit/0.01ml Susp (100units/ml) SC SCH ×2 (08:44→18:08)
[2021-05-16] MEDS: FLORASTOR (S. BOULARDII) 250 MG CAP PO SCH (10:00)
[2021-05-16] MEDS: AMIODARONE HCL 200 MG TAB PO SCH (10:00)
[2021-05-16] MEDS: SODIUM CHLOR 0.9% PF (SALINE LOCK) 10ML VIAL/SYR IV SCH ×2 (10:00→21:59)
[2021-05-16] MEDS: PANTOPRAZOLE 40 MG TAB PO SCH (10:00)
[2021-05-16] MEDS: SERTRALINE HCL 50 MG TAB PO SCH (10:00)
[2021-05-16] MEDS: ASPirin 81 mg TAB PO SCH (10:00)
[2021-05-16 10:02] VITALS: BP 142/74
[2021-05-16] MEDS: AZITHROMYCIN 500MG/ 250ML 250 ML IV SCH (10:14)
[2021-05-16] MEDS: MORPHINE SULFATE INJECTION 2 MG/ML SYRG IV PRN ×3 (10:14→22:21)
[2021-05-16 11:51] LABS: Band Neutrophils % (manual) 16; Eosinophils % (manual) 1 (0-7); Lymphocytes % (manual) 7 (10.0-50.0); Metamyelocytes % 1; Monocytes % (manual) 10 (0-12); Myelocytes % 2
[2021-05-16 12:00] VITALS: BP 152/61
[2021-05-16] MEDS: SODIUM CHLORIDE 0.9% 1,000 ML IV SCH (13:45)
[2021-05-16 16:00] VITALS: BP 136/60
[2021-05-16] MEDS ORDERED: AMINO ACID INFUSION IN D10W 1,000 ML IV NR (20:00)
[2021-05-16] MEDS: ATORVASTATIN 20 MG TAB PO SCH (21:59)
[2021-05-16 22:00] VITALS: BP 128/57
[2021-05-17] MEDS: InsuLIN REG 1unit/0.01ml Soln (100units/ml) SC SCH ×3 (00:16→12:00)
[2021-05-17] MEDS: ACCU-CHEK COMFORT CURVE STRIP VI SCH ×3 (00:24→12:00)
[2021-05-17] MEDS: BUMETANIDE 2.5mg/10ml (0.25 mg/ml) INJ IV SCH ×2 (00:25→08:45)
[2021-05-17] MEDS: IPRATROPIUM BROM 0.5 MG/2.5ML INH SOL NEB SCH ×3 (00:57→11:03)
[2021-05-17] MEDS: ALBUTEROL SULF 2.5 MG/0.5ML(0.5%) NEB SOLN NEB SCH ×3 (00:57→11:03)
[2021-05-17 05:00] VITALS: BP 99/60
[2021-05-17] MEDS: VANCOMYCIN HCL 125MG/5ML ORAL SOL GT SCH ×2 (05:29→09:27)
[2021-05-17] MEDS: GABAPENTIN 300 MG CAP PO SCH (05:29)
[2021-05-17] MEDS: CARBIDOPA W LEVODOPA 25/250mg TABLET PO SCH (05:29)
[2021-05-17] MEDS: metroNIDAZOLE 500MG/100ML 100 ML IV SCH (05:38)
[2021-05-17 06:39] LABS: Potassium 5.2 mmol/L (3.5-5.1)
[2021-05-17] MEDS: LEVOTHYROXINE SODIUM 112 MCG TAB PO SCH (06:42)
[2021-05-17 06:50] LABS: Albumin 2.3 g/dL (3.4-5.0); BUN/Creatinine Ratio 18.1; Bilirubin, Total 0.4 mg/dL (0.2-1.0); Calcium 7.9 mg/dL (8.5-10.1); Phosphorus 6.8 mg/dL (2.5-4.90); Total Protein 5.2 g/dL (6.4-8.2)
[2021-05-17 09:00] VITALS: BP 98/47
[2021-05-17] MEDS: cefTRIAXone 1GM/50ML D5W 50 ML IV SCH (09:26)
[2021-05-17] MEDS: ASPirin 81 mg TAB PO SCH (09:26)
[2021-05-17] MEDS: SODIUM CHLOR 0.9% PF (SALINE LOCK) 10ML VIAL/SYR IV SCH (09:26)
[2021-05-17] MEDS: PANTOPRAZOLE 40 MG TAB PO SCH (09:27)
[2021-05-17] MEDS: FLORASTOR (S. BOULARDII) 250 MG CAP PO SCH (09:27)
[2021-05-17] MEDS: AMIODARONE HCL 200 MG TAB PO SCH (09:27)
[2021-05-17] MEDS: SERTRALINE HCL 50 MG TAB PO SCH (09:27)
[2021-05-17] MEDS: INSULIN 70/30 1unit/0.01ml Susp (100units/ml) SC SCH (09:56)
[2021-05-17] MEDS: AZITHROMYCIN 500MG/ 250ML 250 ML IV SCH (10:00)
[2021-05-17 13:00] VITALS: BP 115/43
[2021-05-17] MEDS ORDERED: AMINO ACID INFUSION IN D10W 1,000 ML IV NR (20:00)
== END 2021-05-17 13:35 | disposition hospice, home (50) | DRG 871 ==
LOC: EDBD 11:36 → ER 11:36 → TELE 21:31 → TELE-CENTR 23:13 → TELE-WESTW 23:33 → ICU WEST 05-11 01:24 → TELE-WESTW 05-13 09:43
PROVIDERS: ADMIT Nurse Practitioner; ATTEND Internal Medicine Geriatric Medicine
PROC: 02HV33Z Insertion of Infusion Device into Superior Vena Cava, Percutaneous Approach (ICD-10-PCS; 2021-05-11)
PROC: 5A09457 Assistance with Respiratory Ventilation, 24-96 Consecutive Hours, Continuous Positive Airway Pressure (ICD-10-PCS; principal; 2021-05-15)
DX: A41.9 Sepsis, unspecified organism (principal); N17.0 Acute kidney failure with tubular necrosis; G93.41 Metabolic encephalopathy; J18.9 Pneumonia, unspecified organism; I50.33 Acute on chronic diastolic (congestive) heart failure; R65.21 Severe sepsis with septic shock; N18.6 End stage renal disease; E44.0 Moderate protein-calorie malnutrition; L03.116 Cellulitis of left lower limb; L03.115 Cellulitis of right lower limb; A04.72 Enterocolitis due to Clostridium difficile, not specified as recurrent; E87.1 Hypo-osmolality and hyponatremia; J44.0 Chronic obstructive pulmonary disease with (acute) lower respiratory infection; K55.9 Vascular disorder of intestine, unspecified; N39.0 Urinary tract infection, site not specified; I13.2 Hypertensive heart and chronic kidney disease with heart failure and with stage 5 chronic kidney disease, or end stage renal disease; Z68.41 Body mass index [BMI] 40.0-44.9, adult; E87.2 Acidosis; K56.7 Ileus, unspecified; Z66 Do not resuscitate; E11.65 Type 2 diabetes mellitus with hyperglycemia; D63.8 Anemia in other chronic diseases classified elsewhere; E66.01 Morbid (severe) obesity due to excess calories; E03.9 Hypothyroidism, unspecified; E11.21 Type 2 diabetes mellitus with diabetic nephropathy; E11.22 Type 2 diabetes mellitus with diabetic chronic kidney disease; E87.5 Hyperkalemia; I48.91 Unspecified atrial fibrillation; F02.80 Dementia in other diseases classified elsewhere, unspecified severity, without behavioral disturbance, psychotic disturbance, mood disturbance, and anxiety; G20 Parkinson's disease; Z51.5 Encounter for palliative care; Z82.3 Family history of stroke; E86.9 Volume depletion, unspecified
CPT/HCPCS: 36415; 36569; 36600; 71045; 74018; 74176; 80048; 80053; 81001; 82040; 82805; 82962; 83605; 83735; 83880; 84100; 84443; 84478; 84484; 85007; 85027; 85610; 85730; 87040; 87045; 87081; 87086; 87426; 87427; 87493; 93005; 94640; 94660; 96365; 96366; 96375; G0378; J0696; J1815; J2405; J3490; J7060; P9047